=== PATIENT | male | born 1960 | race Caucasian/White ===

== ENCOUNTER 2018-02-13 17:13 | Emergency (ER) | payer OTHER ==
[~2018-02-13] VITALS: Ht 172.7 cm; Wt 83.9 kg
== END 2018-02-14 17:04 | disposition home or self-care (01) ==
LOC: ER 17:13 → CPU-OBS 17:42 → ER 02-14 17:04 → CPU-OBS 02-14 17:04
DX: R07.89 Other chest pain (principal)
CPT/HCPCS: G0378; G0379; 93005

== ENCOUNTER 2018-02-22 09:56 | Outpatient (CLI) | payer OTHER | END 2018-02-22 14:41 | disposition home or self-care (01) | LOC: NUCLEAR 09:56 | DX: I20.1 Angina pectoris with documented spasm (principal) | CPT/HCPCS: A9500; 93017; 78452 ==